=== PATIENT | female | born 1970 | race Caucasian/White ===

== ENCOUNTER 2020-08-30 20:31 | Emergency (ER) | payer SELFPAY ==
[~2020-08-30] VITALS: Ht 162.6 cm; Wt 87.9 kg
[2020-08-30 21:50] VITALS: BP 120/74
== END 2020-08-30 21:51 | disposition home or self-care (01) ==
LOC: ER 20:32
DX: T40.7X1A Poisoning by cannabis (derivatives), accidental (unintentional), initial encounter (principal); R44.1 Visual hallucinations; F10.129 Alcohol abuse with intoxication, unspecified; Z88.0 Allergy status to penicillin; Y92.89 Other specified places as the place of occurrence of the external cause; Y90.9 Presence of alcohol in blood, level not specified
CPT/HCPCS: 99281; 99283